=== PATIENT | male | born 1950 | race African-American/Black ===

== ENCOUNTER 2017-03-18 09:27 | Emergency (ER) | payer MEDICARE, MEDICAID ==
[~2017-03-18] VITALS: Ht 193 cm; Wt 93.0 kg
[~2017-03-18 09:27] MED LIST: ALLO300T2 PO; AMLO10TA80 PO; BANOPHEN; BENA20TA3 PO; DIAZ10TA4 PO; DIAZ5ORA PO; DULO60CA44 PO; FERR-54 PO; MSCON30 PO; TEMA30CA5 PO; TRAZ-132 PO; ZOLP10TA6 PO
[2017-03-18] MEDS ORDERED: KETOROLAC 30MG/ML VIAL IM ONE (13:45)
[2017-03-18] MEDS ORDERED: HYDROCODONE/APAP 7.5/325MG 1 TAB TABLET PO ONE (13:45)
[2017-03-18 18:06] VITALS: BP 179/101
== END 2017-03-18 18:42 | disposition home or self-care (01) ==
LOC: ER 09:32
DX: M54.5 Low back pain (principal); G89.29 Other chronic pain; E11.9 Type 2 diabetes mellitus without complications; H40.9 Unspecified glaucoma; I11.0 Hypertensive heart disease with heart failure; I50.9 Heart failure, unspecified; J44.9 Chronic obstructive pulmonary disease, unspecified; Z98.890 Other specified postprocedural states; Z87.891 Personal history of nicotine dependence
CPT/HCPCS: 72100; 73590; 96372; 99284; J1885

== ENCOUNTER 2017-04-10 11:05 | Emergency (ER) | payer MEDICARE, MEDICAID ==
[~2017-04-10] VITALS: Ht 180.3 cm; Wt 120.0 kg
[2017-04-10] MEDS ORDERED: ONDANSETRON HCL 4MG/2ML VIAL IV STA (12:01)
[2017-04-10] MEDS ORDERED: SODIUM CHLORIDE 0.9% 1,000 ML IV ONE (12:01)
[2017-04-10] MEDS ORDERED: MORPHINE SULFATE 4 MG/ML CPJ (NOT FOR IM USE) IV STA (12:01)
[2017-04-10 12:45] LABS: HEMATOCRIT. 26.9 % (42.0-52.0); HEMOGLOBIN. 8.8 g/dL (14.0-18.0); MEAN CORPUSCULAR HEMOGLOBIN 30.2 pg (28.0-32.0); MEAN CORPUSCULAR VOLUME 92.5 fL (80.0-94.0); PLATELET 279 x1000/uL (130-400); RED BLOOD CELL COUNT 2.91 mill/uL (4.7-6.1); RED CELL DISTRIBUTION WIDTH 15.3 % (11.6-14.6)
[2017-04-10 12:53] LABS: INR 1.1; PARTIAL THROMBOPLASTIN TIME 29.9 sec (23.4-31.0); PROTHROMBIN TIME 11.8 sec (9.4-11.6)
[2017-04-10 13:06] LABS: CARBON DIOXIDE 23 mEq/L (21-32); CHLORIDE 105 mEq/L (98-107); TROPONIN I 0.03 ng/mL (0.00-0.04)
[2017-04-10 13:32] LABS: PLATELET ESTIMATE NORMAL
[2017-04-10 15:04] VITALS: BP 139/83
== END 2017-04-10 15:29 | disposition home or self-care (01) ==
LOC: ER 11:26
DX: G89.29 Other chronic pain (principal); M54.5 Low back pain; R11.10 Vomiting, unspecified; J44.9 Chronic obstructive pulmonary disease, unspecified; I11.0 Hypertensive heart disease with heart failure; I50.9 Heart failure, unspecified; E11.9 Type 2 diabetes mellitus without complications; F11.10 Opioid abuse, uncomplicated; Z87.891 Personal history of nicotine dependence
CPT/HCPCS: 36415; 71010; 80053; 83690; 84484; 85025; 85610; 85730; 93005; 96374; 96375; 99285; J2270; J2405; J7030

== ENCOUNTER 2017-05-19 15:50 | Inpatient (IN) | payer MEDICARE, MEDICAID ==
[~2017-05-19] VITALS: Ht 193 cm; Wt 95.3 kg
[~2017-05-19 15:50] MED LIST changes: +BENA20TA10 PO; -BENA20TA3 PO; -TRAZ-132 PO; +TRAZ-213 PO
[2017-05-19 17:15] LABS: HEMATOCRIT. 30.5 % (42.0-52.0); HEMOGLOBIN. 10.1 g/dL (14.0-18.0); MEAN CORPUSCULAR HEMOGLOBIN 30.9 pg (28.0-32.0); MEAN PLATELET VOLUME 8.8 fl (7.4-10.4); PLATELET 251 x1000/uL (130-400); RED BLOOD CELL COUNT 3.27 mill/uL (4.7-6.1)
[2017-05-19] MEDS ORDERED: METHYLPREDNISOLONE SOD SUCC 125 MG/2 ML VIAL IV STA (17:17)
[2017-05-19] MEDS ORDERED: IPRATROPIUM BROMIDE (0.02%) 0.5MG/2.5ML NEB HHN STA (17:17)
[2017-05-19 17:20] LABS: INR 1.1; PROTHROMBIN TIME 11.8 sec (9.4-11.6)
[2017-05-19 17:27] LABS: CHLORIDE 106 mEq/L (98-107)
[2017-05-19] MEDS ORDERED: MAGNESIUM 2 G PREMIX 50 ML IV ONE (17:30)
[2017-05-19] MEDS ORDERED: LEVOFLOXACIN 750MG PREMIX 150 ML IV NR (17:30)
[2017-05-19] MEDS: ALBUTEROL (0.083%) 2.5MG/3ML NEB HHN SCH ×3 (17:30→18:30)
[2017-05-19 17:33] LABS: PLATELET ESTIMATE NORMAL
[2017-05-19] MEDS ORDERED: NITROGLYCERIN 0.4MG TABLET SL SL PRN (19:30)
[2017-05-19] MEDS ORDERED: NITROGLYCERIN OINT 1GM/INCH UDPKT TD NR (19:30)
[2017-05-19 20:03] LABS: BG BASE EXCESS -6.9 mmol/L (-2.0-2.0); BG BILEVEL POS AIRWAY PRESSURE 15/5; BG CARBOXYHEMOGLOBIN 0.5 % (0.5-1.5); BG DEOXYHEMOGLOBIN 0.7 % (0.0-5.0); BG FRACTION INSPIRED OXYGEN 50; BG HCO3 ACT 19.6 mmol/L (22.0-26.0); BG METHEMOGLOBIN 0.3 % (0.0-1.5); BG OXYGEN SATURATION 99.3 % (92.0-98.5); BG OXYHEMOGLOBIN 98.5 % (94.0-97.0); BG PCO2 43.5 mmHg (35.0-45.0); BG PH 7.272 (7.350-7.450); BG PO2 164.4 mmHg (75.0-100.0); BG SAMPLE SITE RIGHT RADIAL; BG TOTAL HEMOGLOBIN 10.5 g/dL (12.0-18.0); BG VENT MODE MASK - BIPAP
[2017-05-19] MEDS ORDERED: HYDRALAZINE 20MG/ML VIAL IV ONE (21:15)
[2017-05-19] MEDS ORDERED: MORPHINE SULFATE 4 MG/ML CPJ (NOT FOR IM USE) IV ONE (21:15)
[2017-05-19 23:44] VITALS: BP 201/105
[2017-05-19] MEDS ORDERED: METH5TAB2 PO (23:51)
[2017-05-20] VITALS (13 sets, daily range): BP systolic 140–216; BP diastolic 72–109
[2017-05-20] MEDS ORDERED: ONDANSETRON HCL 4MG/2ML INJ IV PRN (00:15)
[2017-05-20] MEDS ORDERED: DIPHENHYDRAMINE 25MG CAPSULE PO PRN (00:30)
[2017-05-20] MEDS: AMLODIPINE 10MG TABLET PO SCH ×2 (00:50→08:27)
[2017-05-20] MEDS: FUROSEMIDE 40MG/4ML VIAL IVP SCH ×2 (00:51→08:27)
[2017-05-20] MEDS: MORPHINE SULFATE 4 MG/ML CPJ (NOT FOR IM USE) IV PRN ×3 (00:53→23:15)
[2017-05-20] MEDS: BENAZEPRIL 20MG TABLET PO SCH ×2 (01:05→08:28)
[2017-05-20] MEDS: TRAZODONE HCL 100MG TABLET PO SCH ×2 (03:00→17:21)
[2017-05-20] MEDS: CLONIDINE 0.1MG TABLET PO PRN (03:02)
[2017-05-20] MEDS: HYDRALAZINE HCL 100MG TABLET PO SCH ×4 (04:31→21:02)
[2017-05-20] MEDS: DIPHENHYDRAMINE 50MG CAPSULE PO PRN ×3 (04:32→23:15)
[2017-05-20] MEDS ORDERED: HYDRALAZINE HCL 25MG TABLET PO SCH ×2 (06:00)
[2017-05-20] MEDS: NITROGLYCERIN OINT 1GM/INCH UDPKT TD SCH ×3 (06:39→21:02)
[2017-05-20] MEDS: DULOXETINE HCL 60MG DR CAPSULE PO SCH (08:27)
[2017-05-20] MEDS: FERROUS SULFATE 325MG TABLET PO SCH ×2 (08:27→17:21)
[2017-05-20] MEDS ORDERED: IPRATROPIUM/ALBUTEROL 0.5-3(2.5)MG/3ML NEB HHN PRN (12:30)
[2017-05-20 13:09] LABS: BG BASE EXCESS -3.7 mmol/L (-2.0-2.0); BG CARBOXYHEMOGLOBIN 0.3 % (0.5-1.5); BG DEOXYHEMOGLOBIN 4.6 % (0.0-5.0); BG FRACTION INSPIRED OXYGEN 21; BG HCO3 ACT 21.6 mmol/L (22.0-26.0); BG METHEMOGLOBIN 0.2 % (0.0-1.5); BG OXYGEN SATURATION 95.4 % (92.0-98.5); BG OXYHEMOGLOBIN 94.9 % (94.0-97.0); BG PCO2 39.7 mmHg (35.0-45.0); BG PH 7.353 (7.350-7.450); BG PO2 74.5 mmHg (75.0-100.0); BG SAMPLE SITE RIGHT RADIAL; BG TOTAL HEMOGLOBIN 10.2 g/dL (12.0-18.0); BG VENT MODE ROOM AIR
[2017-05-20 16:40] LABS: CLARITY URINE CLEAR (CLEAR); COLOR URINE YELLOW (YELLOW); KETONES URINE NEGATIVE (NEGATIVE); LEUKOCYTE ESTERASE URINE NEGATIVE (NEGATIVE); NITRITE URINE NEGATIVE (NEGATIVE); OCCULT BLOOD URINE NEGATIVE (NEGATIVE); PROTEIN URINE 2+ (NEGATIVE); SPECIFIC GRAVITY URINE 1.013 (1.005-1.030); UROBILINOGEN URINE 0.2 E.U./dL (0.2-1.0)
[2017-05-20] MEDS ORDERED: TRAZODONE HCL 100MG TABLET PO SCH (17:00)
[2017-05-20 17:04] LABS: *AMPHETAMINES SCREEN URINE NEGATIVE (NEGATIVE); *BARBITURATES SCREEN URINE NEGATIVE (NEGATIVE); *BENZODIAZEPINES SCREEN URINE PRESUMTIVE POSITIVE (NEGATIVE); *COCAINE SCREEN URINE NEGATIVE (NEGATIVE); CANNABINOID URINE SCREEN NEGATIVE (NEGATIVE); METHADONE URINE SCREEN NEGATIVE (NEGATIVE); OPIATES URINE SCREEN PRESUMTIVE POSITIVE (NEGATIVE); PHENCYCLIDINE URINE SCREEN NEGATIVE (NEGATIVE)
[2017-05-20] MEDS: IPRATROPIUM/ALBUTEROL 0.5-3(2.5)MG/3ML NEB HHN SCH (20:04)
[2017-05-21] VITALS (11 sets, daily range): BP systolic 142–169; BP diastolic 66–97
[2017-05-21] MEDS: IPRATROPIUM/ALBUTEROL 0.5-3(2.5)MG/3ML NEB HHN SCH ×4 (01:10→20:02)
[2017-05-21] MEDS: HYDRALAZINE HCL 100MG TABLET PO SCH ×3 (05:31→21:07)
[2017-05-21] MEDS: NITROGLYCERIN OINT 1GM/INCH UDPKT TD SCH ×3 (05:32→21:08)
[2017-05-21] MEDS: CLONIDINE 0.1MG TABLET PO PRN (06:15)
[2017-05-21] MEDS: CLONIDINE 0.2MG TABLET PO SCH ×3 (06:49→21:09)
[2017-05-21] MEDS: FERROUS SULFATE 325MG TABLET PO SCH ×2 (09:38→17:15)
[2017-05-21] MEDS: FUROSEMIDE 40MG/4ML VIAL IVP SCH ×2 (09:38→17:15)
[2017-05-21] MEDS: DULOXETINE HCL 60MG DR CAPSULE PO SCH (09:38)
[2017-05-21] MEDS: AMLODIPINE 10MG TABLET PO SCH (09:38)
[2017-05-21 09:43] LABS: CREATINE KINASE 61 IU/L (39-308)
[2017-05-21 11:59] LABS: T4 FREE 1.06 ng/dL (0.76-1.46)
[2017-05-21] MEDS: ENOXAPARIN 30MG/0.3ML SYR SUBCUT SCH (13:21)
[2017-05-21] MEDS: DIPHENHYDRAMINE 50MG CAPSULE PO PRN ×2 (15:06→15:07)
[2017-05-21 15:31] LABS: CREATINE KINASE MB FRACTION 2.5 ng/mL (0.5-3.6)
[2017-05-21] MEDS ORDERED: BISACODYL 5MG TABLET PO NR (16:45)
[2017-05-21] MEDS ORDERED: BISACODYL 5MG TABLET PO PRN (16:45)
[2017-05-21] MEDS: TRAZODONE HCL 100MG TABLET PO SCH (17:15)
[2017-05-21] MEDS: DOCUSATE SODIUM 250MG CAPSULE PO SCH (17:15)
[2017-05-21] MEDS ORDERED: ZOLPIDEM TARTRATE 5MG TABLET PO PRN (21:00)
[2017-05-21 23:58] LABS: CREATINE KINASE MB FRACTION 1.6 ng/mL (0.5-3.6)
[2017-05-22] VITALS (12 sets, daily range): BP systolic 139–172; BP diastolic 75–96
[2017-05-22] MEDS: IPRATROPIUM/ALBUTEROL 0.5-3(2.5)MG/3ML NEB HHN SCH ×4 (02:05→21:54)
[2017-05-22] MEDS: ZOLPIDEM TARTRATE 5MG TABLET PO PRN (02:09)
[2017-05-22] MEDS: DIAZEPAM 5 MG TABLET PO PRN (02:09)
[2017-05-22] MEDS: CLONIDINE 0.2MG TABLET PO SCH ×3 (05:05→22:23)
[2017-05-22] MEDS: HYDRALAZINE HCL 100MG TABLET PO SCH ×3 (05:05→22:23)
[2017-05-22] MEDS: NITROGLYCERIN OINT 1GM/INCH UDPKT TD SCH ×3 (05:05→22:23)
[2017-05-22 06:07] LABS: HEMATOCRIT. 26.1 % (42.0-52.0); HEMOGLOBIN. 8.8 g/dL (14.0-18.0); MEAN CORPUSCULAR HEMOGLOBIN 31.2 pg (28.0-32.0); MEAN CORPUSCULAR VOLUME 93.2 fL (80.0-94.0); MEAN PLATELET VOLUME 9.5 fl (7.4-10.4); PLATELET 243 x1000/uL (130-400); RED CELL DISTRIBUTION WIDTH 14.6 % (11.6-14.6)
[2017-05-22] MEDS: FUROSEMIDE 40MG/4ML VIAL IVP SCH ×2 (06:34→17:44)
[2017-05-22 08:24] LABS: CREATINE KINASE MB FRACTION 1.7 ng/mL (0.5-3.6); PHOSPHORUS 4.8 mg/dL (2.5-4.9)
[2017-05-22] MEDS: ENOXAPARIN 30MG/0.3ML SYR SUBCUT SCH (09:04)
[2017-05-22] MEDS: FERROUS SULFATE 325MG TABLET PO SCH ×2 (09:05→17:44)
[2017-05-22] MEDS: AMLODIPINE 10MG TABLET PO SCH (09:05)
[2017-05-22] MEDS: DOCUSATE SODIUM 250MG CAPSULE PO SCH (09:05)
[2017-05-22] MEDS: DULOXETINE HCL 60MG DR CAPSULE PO SCH (09:05)
[2017-05-22 10:37] LABS: PLATELET ESTIMATE NORMAL
[2017-05-22] MEDS: CLONIDINE 0.1MG TABLET PO PRN (15:12)
[2017-05-22] MEDS: TRAZODONE HCL 100MG TABLET PO SCH (17:44)
[2017-05-22] MEDS: MORPHINE SULFATE 4 MG/ML CPJ (NOT FOR IM USE) IV PRN (20:38)
[2017-05-23] VITALS (13 sets, daily range): BP systolic 97–163; BP diastolic 62–99
[2017-05-23] MEDS: IPRATROPIUM/ALBUTEROL 0.5-3(2.5)MG/3ML NEB HHN SCH ×4 (01:38→20:07)
[2017-05-23] MEDS: DIAZEPAM 5 MG TABLET PO PRN (02:40)
[2017-05-23] MEDS: ZOLPIDEM TARTRATE 5MG TABLET PO PRN (02:40)
[2017-05-23 06:33] LABS: HEMATOCRIT. 26.2 % (42.0-52.0); HEMOGLOBIN. 8.6 g/dL (14.0-18.0); MEAN CORPUSCULAR HEMOGLOBIN 30.3 pg (28.0-32.0); MEAN CORPUSCULAR VOLUME 92.4 fL (80.0-94.0); MEAN PLATELET VOLUME 8.9 fl (7.4-10.4); PLATELET 245 x1000/uL (130-400); RED BLOOD CELL COUNT 2.84 mill/uL (4.7-6.1); RED CELL DISTRIBUTION WIDTH 14.3 % (11.6-14.6)
[2017-05-23] MEDS: CLONIDINE 0.2MG TABLET PO SCH ×3 (06:35→21:58)
[2017-05-23] MEDS: HYDRALAZINE HCL 100MG TABLET PO SCH ×3 (06:36→21:57)
[2017-05-23] MEDS: NITROGLYCERIN OINT 1GM/INCH UDPKT TD SCH ×3 (06:36→21:58)
[2017-05-23] MEDS: DULOXETINE HCL 60MG DR CAPSULE PO SCH (09:06)
[2017-05-23] MEDS: DOCUSATE SODIUM 250MG CAPSULE PO SCH (09:06)
[2017-05-23] MEDS: FERROUS SULFATE 325MG TABLET PO SCH ×2 (09:06→17:38)
[2017-05-23] MEDS: FUROSEMIDE 40MG/4ML VIAL IVP SCH (09:06)
[2017-05-23] MEDS: AMLODIPINE 10MG TABLET PO SCH (09:10)
[2017-05-23] MEDS: ENOXAPARIN 30MG/0.3ML SYR SUBCUT SCH (09:21)
[2017-05-23 12:29] LABS: PLATELET ESTIMATE NORMAL
[2017-05-23] MEDS: DIPHENHYDRAMINE 50MG CAPSULE PO PRN (15:03)
[2017-05-23] MEDS: TRAZODONE HCL 100MG TABLET PO SCH (17:38)
[2017-05-23] MEDS ORDERED: NA PHOS,M-B/NA PHOS,DI-BA ENEMA 118ML PR SCH (21:00)
[2017-05-24] VITALS (20 sets, daily range): BP systolic 118–157; BP diastolic 65–95
[2017-05-24] MEDS: MORPHINE SULFATE 4 MG/ML CPJ (NOT FOR IM USE) IV PRN (01:27)
[2017-05-24] MEDS: IPRATROPIUM/ALBUTEROL 0.5-3(2.5)MG/3ML NEB HHN SCH ×4 (01:27→20:55)
[2017-05-24] MEDS: DIAZEPAM 5 MG TABLET PO PRN (02:03)
[2017-05-24] MEDS: ZOLPIDEM TARTRATE 5MG TABLET PO PRN (02:03)
[2017-05-24 06:31] LABS: HEMATOCRIT. 26.9 % (42.0-52.0); MEAN CORPUSCULAR HEMOGLOBIN 30.9 pg (28.0-32.0); MEAN CORPUSCULAR VOLUME 92.2 fL (80.0-94.0); MEAN PLATELET VOLUME 8.9 fl (7.4-10.4); PLATELET 256 x1000/uL (130-400); RED BLOOD CELL COUNT 2.92 mill/uL (4.7-6.1); RED CELL DISTRIBUTION WIDTH 14.4 % (11.6-14.6)
[2017-05-24] MEDS: HYDRALAZINE HCL 100MG TABLET PO SCH ×3 (07:03→22:20)
[2017-05-24] MEDS: CLONIDINE 0.2MG TABLET PO SCH ×3 (07:03→22:20)
[2017-05-24] MEDS: NITROGLYCERIN OINT 1GM/INCH UDPKT TD SCH ×3 (07:03→22:20)
[2017-05-24] MEDS: FUROSEMIDE 40MG/4ML VIAL IVP SCH (09:25)
[2017-05-24] MEDS: DOCUSATE SODIUM 250MG CAPSULE PO SCH (09:25)
[2017-05-24] MEDS: FERROUS SULFATE 325MG TABLET PO SCH ×2 (09:25→16:56)
[2017-05-24] MEDS: DULOXETINE HCL 60MG DR CAPSULE PO SCH (09:25)
[2017-05-24] MEDS: AMLODIPINE 10MG TABLET PO SCH (09:27)
[2017-05-24] MEDS: ENOXAPARIN 30MG/0.3ML SYR SUBCUT SCH (09:27)
[2017-05-24] MEDS: DIPHENHYDRAMINE 50MG CAPSULE PO PRN (09:27)
[2017-05-24 11:21] LABS: PLATELET ESTIMATE NORMAL
[2017-05-24] MEDS: HYDROCODONE/ACETAMINOPHEN 10/325MG TABLET PO PRN ×2 (12:49→22:38)
[2017-05-24] MEDS: LACTULOSE 20G/30ML UDC PO SCH ×2 (14:50→22:19)
[2017-05-24] MEDS: TRAZODONE HCL 100MG TABLET PO SCH (16:56)
[2017-05-24] MEDS: NAPROXEN 500MG TABLET PO PRN (20:18)
[2017-05-25] VITALS (20 sets, daily range): BP systolic 120–164; BP diastolic 67–87
[2017-05-25] MEDS: IPRATROPIUM/ALBUTEROL 0.5-3(2.5)MG/3ML NEB HHN SCH ×4 (00:30→21:00)
[2017-05-25] MEDS: DIAZEPAM 5 MG TABLET PO PRN (03:37)
[2017-05-25] MEDS: ZOLPIDEM TARTRATE 5MG TABLET PO PRN (03:37)
[2017-05-25] MEDS: NITROGLYCERIN OINT 1GM/INCH UDPKT TD SCH ×3 (06:47→21:57)
[2017-05-25] MEDS: HYDRALAZINE HCL 100MG TABLET PO SCH ×3 (06:47→21:57)
[2017-05-25] MEDS: CLONIDINE 0.2MG TABLET PO SCH ×3 (06:47→21:57)
[2017-05-25] MEDS: LACTULOSE 20G/30ML UDC PO SCH ×3 (06:51→21:57)
[2017-05-25 07:01] LABS: HEMATOCRIT. 26.1 % (42.0-52.0); HEMOGLOBIN. 8.5 g/dL (14.0-18.0); MEAN CORPUSCULAR HEMOGLOBIN 30.2 pg (28.0-32.0); MEAN CORPUSCULAR VOLUME 92.4 fL (80.0-94.0); PLATELET 264 x1000/uL (130-400); RED BLOOD CELL COUNT 2.83 mill/uL (4.7-6.1)
[2017-05-25] MEDS: AMLODIPINE 10MG TABLET PO SCH (09:15)
[2017-05-25] MEDS: DULOXETINE HCL 60MG DR CAPSULE PO SCH (09:15)
[2017-05-25] MEDS: FUROSEMIDE 40MG/4ML VIAL IVP SCH (09:15)
[2017-05-25] MEDS: ENOXAPARIN 30MG/0.3ML SYR SUBCUT SCH (09:16)
[2017-05-25] MEDS: FERROUS SULFATE 325MG TABLET PO SCH ×2 (09:16→16:49)
[2017-05-25] MEDS: DOCUSATE SODIUM 250MG CAPSULE PO SCH (09:22)
[2017-05-25] MEDS: HYDROCODONE/ACETAMINOPHEN 10/325MG TABLET PO PRN (09:24)
[2017-05-25 11:16] LABS: PLATELET ESTIMATE NORMAL
[2017-05-25] MEDS: METHADONE HCL 10MG TABLET PO PRN (16:49)
[2017-05-25] MEDS: TRAZODONE HCL 100MG TABLET PO SCH (16:52)
[2017-05-25] MEDS: NAPROXEN 500MG TABLET PO PRN (20:08)
[2017-05-25] MEDS: DIPHENHYDRAMINE 50MG CAPSULE PO PRN (20:08)
[2017-05-26] VITALS (12 sets, daily range): BP systolic 133–170; BP diastolic 70–108
[2017-05-26] MEDS: ZOLPIDEM TARTRATE 5MG TABLET PO PRN (03:24)
[2017-05-26] MEDS: DIAZEPAM 5 MG TABLET PO PRN (03:24)
[2017-05-26 06:57] LABS: HEMATOCRIT. 27.3 % (42.0-52.0); HEMOGLOBIN. 8.9 g/dL (14.0-18.0); MEAN CORPUSCULAR HEMOGLOBIN 30.3 pg (28.0-32.0); MEAN PLATELET VOLUME 8.8 fl (7.4-10.4); PLATELET 279 x1000/uL (130-400); RED BLOOD CELL COUNT 2.93 mill/uL (4.7-6.1); RED CELL DISTRIBUTION WIDTH 14.2 % (11.6-14.6)
[2017-05-26] MEDS: HYDRALAZINE HCL 100MG TABLET PO SCH ×3 (07:07→22:31)
[2017-05-26] MEDS: CLONIDINE 0.2MG TABLET PO SCH ×3 (07:08→22:31)
[2017-05-26] MEDS: NITROGLYCERIN OINT 1GM/INCH UDPKT TD SCH ×3 (07:08→22:32)
[2017-05-26 07:28] LABS: CHLORIDE 99 mEq/L (98-107); CREATINE KINASE 61 IU/L (39-308)
[2017-05-26] MEDS: IPRATROPIUM/ALBUTEROL 0.5-3(2.5)MG/3ML NEB HHN SCH ×2 (09:04)
[2017-05-26] MEDS: FUROSEMIDE 40MG/4ML VIAL IVP SCH (09:33)
[2017-05-26] MEDS: AMLODIPINE 10MG TABLET PO SCH (09:34)
[2017-05-26] MEDS: DOCUSATE SODIUM 250MG CAPSULE PO SCH (09:34)
[2017-05-26] MEDS: DULOXETINE HCL 60MG DR CAPSULE PO SCH (09:34)
[2017-05-26] MEDS: FERROUS SULFATE 325MG TABLET PO SCH ×2 (09:34→16:46)
[2017-05-26] MEDS: ENOXAPARIN 30MG/0.3ML SYR SUBCUT SCH (09:35)
[2017-05-26] MEDS: LACTULOSE 20G/30ML UDC PO SCH ×2 (13:34→22:36)
[2017-05-26] MEDS: METHADONE HCL 10MG TABLET PO PRN (14:30)
[2017-05-26 14:38] LABS: PLATELET ESTIMATE NORMAL
[2017-05-26] MEDS: TRAZODONE HCL 100MG TABLET PO SCH (16:46)
[2017-05-27] VITALS (9 sets, daily range): BP systolic 130–177; BP diastolic 77–99
[2017-05-27] MEDS ORDERED: ZOLPIDEM TARTRATE 5MG TABLET PO PRN (02:45)
[2017-05-27] MEDS ORDERED: DIAZEPAM 5 MG TABLET PO PRN (02:45)
[2017-05-27] MEDS: HYDRALAZINE HCL 100MG TABLET PO SCH ×2 (06:10→14:02)
[2017-05-27] MEDS: NITROGLYCERIN OINT 1GM/INCH UDPKT TD SCH ×2 (06:10→14:02)
[2017-05-27] MEDS: LACTULOSE 20G/30ML UDC PO SCH ×2 (06:10→14:01)
[2017-05-27] MEDS: CLONIDINE 0.2MG TABLET PO SCH ×2 (06:11→14:02)
[2017-05-27 06:36] LABS: HEMATOCRIT. 27.3 % (42.0-52.0); HEMOGLOBIN. 8.9 g/dL (14.0-18.0); MEAN CORPUSCULAR HEMOGLOBIN 30.3 pg (28.0-32.0); MEAN CORPUSCULAR VOLUME 93.2 fL (80.0-94.0); MEAN PLATELET VOLUME 8.7 fl (7.4-10.4); PLATELET 276 x1000/uL (130-400); RED BLOOD CELL COUNT 2.93 mill/uL (4.7-6.1); RED CELL DISTRIBUTION WIDTH 14.2 % (11.6-14.6)
[2017-05-27] MEDS: FERROUS SULFATE 325MG TABLET PO SCH (09:37)
[2017-05-27] MEDS: ENOXAPARIN 30MG/0.3ML SYR SUBCUT SCH (09:37)
[2017-05-27] MEDS: DOCUSATE SODIUM 250MG CAPSULE PO SCH (09:37)
[2017-05-27] MEDS: FUROSEMIDE 40MG/4ML VIAL IVP SCH (09:37)
[2017-05-27] MEDS: DULOXETINE HCL 60MG DR CAPSULE PO SCH (09:37)
[2017-05-27] MEDS: AMLODIPINE 10MG TABLET PO SCH (09:38)
[2017-05-27] MEDS: HYDROCODONE/ACETAMINOPHEN 10/325MG TABLET PO PRN (11:39)
[2017-05-27 15:49] LABS: PLATELET ESTIMATE NORMAL
== END 2017-05-27 15:25 | disposition home health service (06) | DRG 194 ==
LOC: EDBD → ER 15:57 → EDBEDREQTM 19:36 → EDBEDREQ 19:36 → ENRESERV 20:07 → 5EST 20:37 → EDBEDREQ 20:38
PROVIDERS: ADMIT Hospitalist; ATTEND Hospitalist
PROC: 5A09357 Assistance with Respiratory Ventilation, Less than 24 Consecutive Hours, Continuous Positive Airway Pressure (ICD-10-PCS; principal; 2017-05-19)
DX: I13.0 Hypertensive heart and chronic kidney disease with heart failure and stage 1 through stage 4 chronic kidney disease, or unspecified chronic kidney disease (principal); J96.00 Acute respiratory failure, unspecified whether with hypoxia or hypercapnia; N17.9 Acute kidney failure, unspecified; E44.0 Moderate protein-calorie malnutrition; E11.22 Type 2 diabetes mellitus with diabetic chronic kidney disease; E11.51 Type 2 diabetes mellitus with diabetic peripheral angiopathy without gangrene; I50.33 Acute on chronic diastolic (congestive) heart failure; D63.1 Anemia in chronic kidney disease; G89.4 Chronic pain syndrome; Z60.2 Problems related to living alone; J44.1 Chronic obstructive pulmonary disease with (acute) exacerbation; K59.00 Constipation, unspecified; Z96.653 Presence of artificial knee joint, bilateral; M51.26 Other intervertebral disc displacement, lumbar region; N18.9 Chronic kidney disease, unspecified; Z79.891 Long term (current) use of opiate analgesic; Z89.421 Acquired absence of other right toe(s); Z90.81 Acquired absence of spleen; Z91.14 Patient's other noncompliance with medication regimen; Z79.899 Other long term (current) drug therapy
CPT/HCPCS: 36415; 36600; 71045; 74018; 76770; 80048; 80061; 80305; 81001; 82375; 82550; 82553; 82575; 82805; 83036; 83735; 83880; 84100; 84439; 84443; 84484; 85379; 87804; 93005; 93306; 93970; 94640; 96365; 96375; 97116; 97162; 97166; 97530; 99285; J0360; J1650; J1940; J1956; J2270; J2930; J3475; J7611; J7620; Q0163

== ENCOUNTER 2017-11-01 21:12 | Emergency (ER) | payer MEDICARE, MEDICAID ==
[~2017-11-01] VITALS: Ht 185.4 cm; Wt 84.0 kg
[~2017-11-01 21:12] MED LIST changes: -ALLO300T2 PO; -BANOPHEN; -BENA20TA10 PO; +BENA20TA3 PO; -DIAZ5ORA PO; -TEMA30CA5 PO; +TRAZ-132 PO; -TRAZ-213 PO; -ZOLP10TA6 PO
[2017-11-01] MEDS ORDERED: HYDROCODONE/ACETAMINOPHEN 5/325MG TABLET PO ONE (22:00)
[2017-11-02] MEDS ORDERED: AMLODIPINE 10MG TABLET PO ONE (01:30)
[2017-11-02 08:29] VITALS: BP 130/69
== END 2017-11-02 08:34 | disposition home or self-care (01) ==
LOC: ER 21:12
DX: M54.5 Low back pain (principal); G89.29 Other chronic pain; I10 Essential (primary) hypertension; H54.7 Unspecified visual loss; Z90.89 Acquired absence of other organs; Z98.890 Other specified postprocedural states
CPT/HCPCS: 99283